=== PATIENT | male | born 1950 | race Caucasian/White ===

== ENCOUNTER 2016-07-30 07:59 | Emergency (ER) | payer BC, OTHER ==
[2016-07-30 08:08] VITALS: BP 152/92
--- NOTE | 2016-07-30 08:23 | EDM.PDOC ---
ED HPI GENERAL MEDICAL PROBLEM - General Chief Complaint: Back Pain or Injury Stated Complaint: [id number] HURT BACK AT WORK Time Seen by Provider: 07/30/16 08:18 Source of Information: Reports: Patient, RN Notes Reviewed History Limitations: Reports: No Limitations - History of Present Illness INITIAL COMMENTS - FREE TEXT/NARRATIVE: Patient is 66 year old male who works at [employer] who was putting together a cardboard pallet when he bent over and had right sided flank pain. He states it was sharp and non radiating and lasted a few mins. He states he became nauseated and went to tell his Boss- After sitting for a few mins he felt better and then got up and walked about 100ft when the pain returned and he became nauseated again. At that time his boss sent him to the ER. He states that he is in no real pain at this time. rates it a 2/10- States it is worse when he bend forward and better at rest. denies any urinary symptoms or history of kidney stones. Onset: Today, Sudden Severity: Mild Right Lower Back Pain Score (Numeric/FACES): 4 - Related Data Allergies Allergy/AdvReac Type Severity Reaction Status Date / Time niacin Allergy Cannot Verified 07/30/16 08:04 [From Niaspan Remember Extended-Release] Home Meds: Home Meds Fenofibrate [Fenoglide] 40 mg PO DAILY 12/10/13 [History] Levothyroxine Sodium [Tirosint] 100 mcg PO DAILY 12/10/13 [History] Metoprolol Tartrate [Lopressor] 50 mg PO BID 12/10/13 [History] atorvaSTATin [Lipitor] 40 mg PO DAILY 12/10/13 [History] Aspirin [Halfprin] 81 mg PO DAILY 03/16/15 [History] Multivitamin [One Daily] 1 tab PO DAILY 03/16/15 [History] Past Medical History HEENT History: Reports: Impaired Vision Other HEENT History: wears reading glasses Cardiovascular History: Reports: High Cholesterol, Hypertension Other Cardiovascular History: [place] - 1991, bypass 2002, pacemaker 2010 Respiratory History: Reports: None Gastrointestinal History: Reports: None Genitourinary History: Reports: Renal Calculus Musculoskeletal History: Reports: None Neurological History: Reports: None Psychiatric History: Reports: None Endocrine/Metabolic History: Reports: Hypothyroidism Hematologic History: Reports: None Immunologic History: Reports: None Oncologic (Cancer) History: Reports: None Dermatologic History: Reports: None - Infectious Disease History Infectious Disease History: Reports: Chicken Pox, Measles Social & Family History - Family History Family Medical History: Noncontributory - Tobacco Use Smoking Status *Q: Never Smoker Second Hand Smoke Exposure: No - Caffeine Use Caffeine Use: Reports: Coffee, Tea - Recreational Drug Use Recreational Drug Use: No - Living Situation & Occupation Living situation: Reports: , with Family Occupation: Employed ED ROS GENERAL - Review of Systems Review Of Systems: ROS reveals no pertinent complaints other than HPI. ED EXAM,LOWER BACK PAIN/INJURY - Physical Exam Exam: See Below Exam Limited By: No Limitations General Appearance: Alert, WD/WN, No Apparent Distress Eye Exam: Bilateral Eye: PERRL Head: Atraumatic, Normocephalic Neck: Normal Inspection, Supple, Non-Tender, Full Range of Motion Respiratory/Chest: No Respiratory Distress, Lungs Clear, Normal Breath Sounds, No Accessory Muscle Use, Chest Non-Tender Cardiovascular: Normal Peripheral Pulses, Regular Rate, Rhythm, No Edema, No Gallop, No JVD, No Murmur, No Rub GI/Abdominal: Normal Bowel Sounds, Soft, Non-Tender, No Organomegaly, No Distention, No Abnormal Bruit, No Mass (Male) Exam: Normal Inspection. No: Testicular Tenderness (R) Back Exam: Paraspinal Tenderness (right sided upper lumbar and thorasic paraspinal tenderness / right CVA tenderness) Extremities: Normal Inspection, Normal Capillary Refill Neurological: Alert, Normal Mood/Affect, Normal Dorsiflexion, CN II-XII Intact, Normal Plantar Flexion, Normal Gait, Normal Reflexes, No Motor/Sensory Deficits , Oriented x 3. No: Abnormal Gait, Straight Leg Raise (L), Straight Leg Raise ( R) DTR - Lower Extremities: 3+: Knee (R), Knee (L), Ankle (R), Ankle (L) Psychiatric: Normal Affect, Normal Mood Skin Exam: Warm, Dry, Intact, Normal Color, No Rash Course - Vital Signs Last Recorded V/S: Last Vital Signs Temp 97.6 F 07/30/16 08:05 Pulse 85 07/30/16 08:05 Resp 16 07/30/16 08:05 BP 152/92 H 07/30/16 08:05 Pulse Ox 96 07/30/16 08:05 - Orders/Labs/Meds Labs: Laboratory Tests 07/30/16 Range/Units 08:17 Urine Color Yellow (YELLOW) Urine Appearance Clear (CLEAR) Urine pH 5.5 (5.0-9.0) Ur Specific [place] 1.020 (1.005-1.030) Urine Protein Negative (NEGATIVE) Urine Glucose (UA) Negative (NEGATIVE) Urine Ketones Negative (NEGATIVE) Urine Occult Blood Moderate H (NEGATIVE) Urine Nitrite Negative (NEGATIVE) Urine Bilirubin Negative (NEGATIVE) Urine Urobilinogen 0.2 (0.2-1.0) mg/dL Ur Leukocyte Esterase Negative (NEGATIVE) Urine RBC 10-20 H /HPF Urine WBC 0-5 (0-5/HPF) /HPF Ur Epithelial Cells Occasional /HPF Calcium Oxalate Crystal Few H /HPF Urine Bacteria Few (0-FEW/HPF) /HPF Urine Mucus Moderate H /LPF - Re-Assessments/Exams Free Text/Narrative Re-Assessment/Exam: 07/30/16 08:55 Patient was found to have 10-20 RBC and mod blood in urine- I feel this is related to kidney stone- which the patient now states he did have one about 3 days ago. I offered CT for further exam - but patient refused and wished to be treated as such and will return for increase pain - or follow up with PCP if pain persistant for more than one week. patient and at bedside verbalized and agree with d/c info. Departure - Departure Time of Disposition: 08:57 Disposition: Home, Self-Care 01 Condition: good Clinical Impression: Acute right flank pain, Hematuria - Discharge Information Instructions: Pain Medicine Instructions, [id number], Flank Pain, Hematuria, Adult Forms: ED Department Discharge Additional Instructions: Patient given flomax/ ultram/ zofran told to not drink or mix alcohol with ultram. Follow up with PCP if pain persistent for greater than one week.
[2016-07-30] MEDS ORDERED: traMADol 50 MG Tab ONE (09:09)
[2016-07-30] MEDS ORDERED: Ondansetron 4 MG Tab.DIS PO ONE (09:11)
[2016-07-30] MEDS ORDERED: traMADol 50 MG Tab PO ONE (09:11)
[2016-07-30] MEDS ORDERED: Tamsulosin 0.4 MG Cap.ER PO ONE (09:11)
[2016-07-30] MEDS ORDERED: Ondansetron 4 MG Tab.DIS ONE (09:11)
[2016-07-30] MEDS ORDERED: Tamsulosin 0.4 MG Cap.ER ONE (09:11)
== END 2016-07-30 09:19 | disposition home or self-care (01) ==
LOC: DL.ED 07:59
DX: R10.9 Unspecified abdominal pain (principal); R31.9 Hematuria, unspecified; E78.00 Pure hypercholesterolemia, unspecified; I10 Essential (primary) hypertension; I25.2 Old myocardial infarction; E03.9 Hypothyroidism, unspecified; Z79.899 Other long term (current) drug therapy; Z88.8 Allergy status to other drugs, medicaments and biological substances; Z79.82 Long term (current) use of aspirin
CPT/HCPCS: 81001; 99283; A9270-GY

== ENCOUNTER 2016-10-25 18:43 | Emergency (ER) | payer BC, OTHER ==
[2016-10-25] MEDS ORDERED: Ondansetron 4 MG/2 ML SDV IV ONE (18:57)
[2016-10-25] MEDS ORDERED: Sodium Chloride 0.9% 1,000 ML IV ONE (18:57)
[2016-10-25] MEDS ORDERED: Morphine 2 MG/ML Syringe IVPUSH ONE (18:57)
--- NOTE | 2016-10-25 19:02 | EDM.PDOC ---
ED HPI GENERAL MEDICAL PROBLEM - General Chief Complaint: Genitourinary Problem Stated Complaint: SEVERE ABD PAINS, KIDNEY STONES, [id number] Time Seen by Provider: 10/25/16 18:59 Source of Information: Reports: Patient, Family History Limitations: Reports: No Limitations - History of Present Illness INITIAL COMMENTS - FREE TEXT/NARRATIVE: spouse states pt started blood in urine Saturday had no pain till today, pt thinks it's K-stone. been nauseous taking zofran with '0'. Right Flank Pain Score (Numeric/FACES): 7 - Related Data Allergies Allergy/AdvReac Type Severity Reaction Status Date / Time niacin Allergy Cannot Verified 10/25/16 18:55 [From Niaspan Remember Extended-Release] Home Meds: Home Meds Fenofibrate [Fenoglide] 40 mg PO DAILY 12/10/13 [History] Levothyroxine Sodium [Tirosint] 100 mcg PO DAILY 12/10/13 [History] Metoprolol Tartrate [Lopressor] 50 mg PO BID 12/10/13 [History] atorvaSTATin [Lipitor] 40 mg PO DAILY 12/10/13 [History] Aspirin [Halfprin] 81 mg PO DAILY 03/16/15 [History] Multivitamin [One Daily] 1 tab PO DAILY 03/16/15 [History] Past Medical History HEENT History: Reports: Impaired Vision Other HEENT History: wears reading glasses Cardiovascular History: Reports: High Cholesterol, Hypertension Other Cardiovascular History: [place] - 1991, bypass 2002, pacemaker 2010 Respiratory History: Reports: None Gastrointestinal History: Reports: None Genitourinary History: Reports: Renal Calculus Musculoskeletal History: Reports: None Neurological History: Reports: None Psychiatric History: Reports: None Endocrine/Metabolic History: Reports: Hypothyroidism Hematologic History: Reports: None Immunologic History: Reports: None Oncologic (Cancer) History: Reports: None Dermatologic History: Reports: None - Infectious Disease History Infectious Disease History: Reports: Chicken Pox, Measles Social & Family History - Family History Family Medical History: Noncontributory - Tobacco Use Smoking Status *Q: Never Smoker Second Hand Smoke Exposure: No - Caffeine Use Caffeine Use: Reports: Coffee, Tea - Recreational Drug Use Recreational Drug Use: No - Living Situation & Occupation Living situation: Reports: , with Family Occupation: Employed ED ROS GENERAL - Review of Systems Review Of Systems: ROS reveals no pertinent complaints other than HPI. ED EXAM, RENAL/ - Physical Exam Exam: See Below Exam Limited By: No Limitations General Appearance: Alert, WD/WN, Mild Distress, Other (right flank pain) Ears: Hearing Grossly Normal Throat/Mouth: Normal Voice, No Airway Compromise Head: Atraumatic Neck: Non-Tender, Full Range of Motion Respiratory/Chest: No Respiratory Distress Cardiovascular: Regular Rate, Rhythm GI/Abdominal: Tender, Other (right side) Back Exam: CVA Tenderness (R) Neurological: Alert, Oriented, Normal Cognition, Normal Gait, No Motor/Sensory Deficits Psychiatric: Flat Affect, Tearful Skin Exam: Warm, Dry, Normal Color Lymphatic: No Adenopathy Course - Vital Signs Last Recorded V/S: Last Vital Signs Temp 35.9 C 10/25/16 18:51 Pulse 60 10/25/16 18:51 Resp 16 10/25/16 18:51 BP 124/98 H 10/25/16 18:51 Pulse Ox 100 10/25/16 18:51 - Orders/Labs/Meds Orders: Active Orders 24 hr Category Date Time Status UA W/MICROSCOPIC [URIN] Stat Lab 10/25/16 20:50 Ordered cefTRIAXone [Rocephin] 1 gm Med 10/25/16 20:55 Ordered Sodium Chloride 0.9% [Normal Saline] 50 ml IV ONETIME Medication Orders Ceftriaxone Sodium 1 gm/ (Sodium Chloride) 50 mls @ 100 mls/hr IV ONETIME ONE Stop: 10/25/16 21:24 Labs: Laboratory Tests 10/25/16 10/25/16 Range/Units 19:00 19:00 WBC 13.5 H (5.0-10.0) 10^3/uL RBC 4.54 L (4.6-6.2) 10^6/uL Hgb 13.8 L (14.0-18.0) g/dL Hct 39.3 L (40.0-54.0) % MCV 86.6 (80-100) fL MCH 30.4 (27.0-34.0) pg MCHC 35.1 H (33.0-35.0) g/dL Plt Count 214 (150-450) 10^3/uL Neut % (Auto) 81.8 H (42.2-75.2) % Lymph % (Auto) 12.5 L (20.5-50.1) % [place] % (Auto) 4.2 (2-8) % Eos % (Auto) 1.3 (1.0-3.0) % Baso % (Auto) 0.2 (0.0-1.0) % Sodium 142 (135-145) mmol/L Potassium 3.8 (3.6-5.0) mmol/L Chloride 107 (101-111) mmol/L Carbon Dioxide 25.0 (21.0-31.0) mmol/L Anion Gap 13.8 BUN 23 H (7-18) mg/dL Creatinine 1.7 H (0.6-1.3) mg/dL Est Cr Clr Drug Dosing 45.33 mL/min Estimated GFR (MDRD) 41 BUN/Creatinine Ratio 13.52 Glucose 129 H (74-105) mg/dL Calcium 10.2 (8.4-10.2) mg/dl Total Bilirubin 0.9 (0.2-1.0) mg/dL AST 27 (10-42) IU/L ALT 24 (10-60) IU/L Alkaline Phosphatase 55 (42-121) IU/L Total Protein 6.7 (6.7-8.2) g/dl Albumin 4.0 (3.2-5.5) g/dl Globulin 2.7 Albumin/Globulin Ratio 1.48 Meds: Medications Generic Name Dose Route Start Last Admin Trade Name Freq PRN Reason Stop Dose Admin Ceftriaxone Sodium 1 gm/ 50 mls @ 100 mls/hr 10/25/16 20:55 Sodium Chloride IV 10/25/16 21:24 ONETIME ONE Discontinued Medications Generic Name Dose Route Start Last Admin Trade Name Freq PRN Reason Stop Dose Admin Sodium Chloride 1,000 mls @ 500 mls/hr 10/25/16 18:57 10/25/16 19:09 Normal Saline IV 10/25/16 20:56 500 mls/hr .BOLUS ONE Administration Morphine Sulfate 2 mg 10/25/16 18:57 10/25/16 19:12 Morphine IVPUSH 10/25/16 18:58 2 mg ONETIME ONE Administration Ondansetron HCl 4 mg 10/25/16 18:57 10/25/16 19:10 Zofran IV 10/25/16 18:58 4 mg ONETIME ONE Administration Departure - Departure Time of Disposition: 20:56 Disposition: DC/Tfer to Acute Hospital 02 Condition: Good Clinical Impression: Kidney stone, Pyelonephritis - Discharge Information Forms: Interfacility Transfer EMTALA - My Orders Last 24 Hours: My Active Orders 10/25/16 20:50 UA W/MICROSCOPIC [URIN] Stat 10/25/16 20:55 cefTRIAXone [Rocephin] 1 gm Sodium Chloride 0.9% [Normal Saline] 50 ml IV ONETIME - Assessment/Plan Last 24 Hours: My Active Orders 10/25/16 20:50 UA W/MICROSCOPIC [URIN] Stat 10/25/16 20:55 cefTRIAXone [Rocephin] 1 gm Sodium Chloride 0.9% [Normal Saline] 50 ml IV ONETIME
[2016-10-25] MEDS ORDERED: cefTRIAXone 1 GM in Sodium Chloride 0.9% 50 ML IV ONE (20:55)
[2016-10-25 21:07] VITALS: BP 142/83
== END 2016-10-25 21:24 ==
LOC: DL.ED 18:43
DX: N13.2 Hydronephrosis with renal and ureteral calculous obstruction (principal); N12 Tubulo-interstitial nephritis, not specified as acute or chronic; E03.9 Hypothyroidism, unspecified; E78.00 Pure hypercholesterolemia, unspecified; I10 Essential (primary) hypertension; I25.2 Old myocardial infarction; Z79.82 Long term (current) use of aspirin; Z88.8 Allergy status to other drugs, medicaments and biological substances; Z79.899 Other long term (current) drug therapy; Z87.440 Personal history of urinary (tract) infections
CPT/HCPCS: 36415; 74176; 80053; 81001; 85025; 96365; 96366; 96375; 99285; J0696; J2270; J2405; J7030; J7050

== ENCOUNTER 2016-10-29 02:27 | Observation (INO) | payer BC ==
[2016-10-29] MEDS ORDERED: Sodium Chloride 0.9% 1,000 ML IV ONE (02:40)
[2016-10-29] MEDS ORDERED: Morphine 2 MG/ML Syringe IVPUSH ONE (02:40)
[2016-10-29] MEDS ORDERED: Ondansetron 4 MG/2 ML SDV IV ONE (02:40)
--- NOTE | 2016-10-29 02:44 | EDM.PDOC ---
ED HPI GENERAL MEDICAL PROBLEM - General Chief Complaint: Genitourinary Problem Stated Complaint: KIDNEY STONE, HAS A STENT AND IS BLEEDING Time Seen by Provider: 10/29/16 02:42 Source of Information: Reports: Patient History Limitations: Reports: No Limitations - History of Present Illness INITIAL COMMENTS - FREE TEXT/NARRATIVE: had K-stone sent to [facility] for stent saturday came home yesterday then blood in urine this am with right flank pain & occasional dysuria. Right Flank Pain Score (Numeric/FACES): 6 - Related Data Allergies Allergy/AdvReac Type Severity Reaction Status Date / Time niacin Allergy Cannot Verified 10/29/16 02:31 [From Niaspan Remember Extended-Release] Home Meds: Home Meds Fenofibrate [Fenoglide] 40 mg PO DAILY 12/10/13 [History] Levothyroxine Sodium [Tirosint] 100 mcg PO DAILY 12/10/13 [History] Metoprolol Tartrate [Lopressor] 50 mg PO BID 12/10/13 [History] atorvaSTATin [Lipitor] 40 mg PO DAILY 12/10/13 [History] Aspirin [Halfprin] 81 mg PO DAILY 03/16/15 [History] Multivitamin [One Daily] 1 tab PO DAILY 03/16/15 [History] Past Medical History HEENT History: Reports: Impaired Vision Other HEENT History: wears reading glasses Cardiovascular History: Reports: High Cholesterol, Hypertension Other Cardiovascular History: [place] - 1991, bypass 2002, pacemaker 2010 Respiratory History: Reports: None Gastrointestinal History: Reports: None Genitourinary History: Reports: Renal Calculus Musculoskeletal History: Reports: None Neurological History: Reports: None Psychiatric History: Reports: None Endocrine/Metabolic History: Reports: Hypothyroidism Hematologic History: Reports: None Immunologic History: Reports: None Oncologic (Cancer) History: Reports: None Dermatologic History: Reports: None - Infectious Disease History Infectious Disease History: Reports: Chicken Pox, Measles - Past Surgical History Male Surgical History: Reports: Ureteral Stent Social & Family History - Family History Family Medical History: Noncontributory - Tobacco Use Smoking Status *Q: Never Smoker Second Hand Smoke Exposure: No - Caffeine Use Caffeine Use: Reports: Coffee, Tea - Recreational Drug Use Recreational Drug Use: No - Living Situation & Occupation Living situation: Reports: , with Family Occupation: Employed ED ROS GENERAL - Review of Systems Review Of Systems: ROS reveals no pertinent complaints other than HPI. ED EXAM, RENAL/ - Physical Exam Exam: See Below Exam Limited By: No Limitations General Appearance: Alert, WD/WN, Mild Distress, Other (pain) Ears: Hearing Grossly Normal Throat/Mouth: Normal Voice, No Airway Compromise Head: Atraumatic Neck: Non-Tender, Full Range of Motion Respiratory/Chest: No Respiratory Distress Cardiovascular: Regular Rate, Rhythm GI/Abdominal: Soft, Non-Tender Neurological: Alert, Oriented, Normal Cognition, Normal Gait, No Motor/Sensory Deficits Psychiatric: Flat Affect Skin Exam: Warm, Dry, Normal Color Lymphatic: No Adenopathy Course - Vital Signs Last Recorded V/S: Last Vital Signs Temp 36.4 C 10/29/16 02:35 Pulse 68 10/29/16 02:35 Resp 16 10/29/16 02:35 BP 139/90 10/29/16 02:35 Pulse Ox 98 10/29/16 02:35 - Orders/Labs/Meds Orders: Active Orders 24 hr Category Date Time Status Sodium Chloride 0.9% [Normal Saline] 1,000 ml Med 10/29/16 02:40 Active IV .BOLUS Medication Orders Sodium Chloride (Normal Saline) 1,000 mls @ 500 mls/hr IV .BOLUS ONE Stop: 10/29/16 04:39 Last Admin: 10/29/16 02:52 Dose: 500 mls/hr Labs: Laboratory Tests 10/29/16 10/29/16 10/29/16 Range/Units 02:40 02:47 02:47 WBC 9.5 (5.0-10.0) 10^3/uL RBC 4.74 (4.6-6.2) 10^6/uL Hgb 14.2 (14.0-18.0) g/dL Hct 41.1 (40.0-54.0) % MCV 86.7 (80-100) fL MCH 30.0 (27.0-34.0) pg MCHC 34.5 (33.0-35.0) g/dL Plt Count 207 (150-450) 10^3/uL Neut % (Auto) 63.4 (42.2-75.2) % Lymph % (Auto) 24.7 (20.5-50.1) % [place] % (Auto) 7.7 (2-8) % Eos % (Auto) 3.8 H (1.0-3.0) % Baso % (Auto) 0.4 (0.0-1.0) % Sodium 140 (135-145) mmol/L Potassium 3.5 L (3.6-5.0) mmol/L Chloride 105 (101-111) mmol/L Carbon Dioxide 26.0 (21.0-31.0) mmol/L Anion Gap 12.5 BUN 21 H (7-18) mg/dL Creatinine 1.2 (0.6-1.3) mg/dL Est Cr Clr Drug Dosing TNP Estimated GFR (MDRD) > 60 BUN/Creatinine Ratio 17.50 Glucose 135 H (74-105) mg/dL Calcium 10.3 H (8.4-10.2) mg/dl Total Bilirubin 0.4 (0.2-1.0) mg/dL AST 23 (10-42) IU/L ALT 23 (10-60) IU/L Alkaline Phosphatase 56 (42-121) IU/L Total Protein 6.6 L (6.7-8.2) g/dl Albumin 3.6 (3.2-5.5) g/dl Globulin 3.0 Albumin/Globulin Ratio 1.20 Urine Color Red (YELLOW) Urine Appearance Turbid (CLEAR) Urine pH 7.0 (5.0-9.0) Ur Specific [place] 1.020 (1.005-1.030) Urine Protein >=300 H (NEGATIVE) Urine Glucose (UA) Negative (NEGATIVE) Urine Ketones Negative (NEGATIVE) Urine Occult Blood Large H (NEGATIVE) Urine Nitrite Negative (NEGATIVE) Urine Bilirubin Small H (NEGATIVE) Urine Urobilinogen 0.2 (0.2-1.0) mg/dL Ur Leukocyte Esterase Large H (NEGATIVE) Urine RBC >100 H /HPF Urine WBC 40-50 H (0-5/HPF) /HPF Ur Epithelial Cells Rare /HPF Calcium Oxalate Crystal Few H /HPF Amorphous Sediment Few (0/HPF) /HPF Urine Bacteria Rare (0-FEW/HPF) /HPF Urine Mucus Rare /LPF Meds: Medications Generic Name Dose Route Start Last Admin Trade Name Freq PRN Reason Stop Dose Admin Sodium Chloride 1,000 mls @ 500 mls/hr 10/29/16 02:40 10/29/16 02:52 Normal Saline IV 10/29/16 04:39 500 mls/hr .BOLUS ONE Administration Discontinued Medications Generic Name Dose Route Start Last Admin Trade Name Geoff PRN Reason Stop Dose Admin Morphine Sulfate 2 mg 10/29/16 02:40 10/29/16 02:55 Morphine IVPUSH 10/29/16 02:41 2 mg ONETIME ONE Administration Ondansetron HCl 4 mg 10/29/16 02:40 10/29/16 02:53 Zofran IV 10/29/16 02:41 4 mg ONETIME ONE Administration - Re-Assessments/Exams Free Text/Narrative Re-Assessment/Exam: 10/29/16 03:[address] Huddleston who kindly admitted pt to observation Departure - Departure Time of Disposition: 03:48 Disposition: Refer to Observation Condition: Good Clinical Impression: Acute right flank pain Hematuria Qualifiers: Hematuria type: gross Qualified Code(s): R31.0 - Gross hematuria - Discharge Information Forms: ED Department Discharge - My Orders Last 24 Hours: My Active Orders 10/29/16 02:40 Sodium Chloride 0.9% [Normal Saline] 1,000 ml IV .BOLUS - Assessment/Plan Last 24 Hours: My Active Orders 10/29/16 02:40 Sodium Chloride 0.9% [Normal Saline] 1,000 ml IV .BOLUS
[2016-10-29 03:11] LABS: CHLORIDE,CL 105 mmol/L (101-111); SODIUM,NA 140 mmol/L (135-145)
[2016-10-29] MEDS ORDERED: Acetaminophen 325 MG Tab PO PRN (05:22)
[2016-10-29] MEDS ORDERED: Ondansetron 4 MG Tab.DIS PO PRN (05:22)
[2016-10-29] MEDS ORDERED: Zolpidem 5 MG Tab PO PRN (05:22)
[2016-10-29] MEDS: Levothyroxine 100 MCG Tab PO SCH (06:14)
[2016-10-29] MEDS: Ciprofloxacin in D5W 400 MG in Premix Bag 1 BAG IV SCH ×6 (06:14→20:38)
[2016-10-29] MEDS: Aspirin 81 MG Tab.EC PO SCH (09:04)
[2016-10-29] MEDS: atorvaSTATin 20 MG Tab PO SCH (09:04)
[2016-10-29] MEDS: Multivitamins,Therapeutic Tab PO SCH (09:05)
[2016-10-29] MEDS: Metoprolol Tartrate 50 MG Tab PO SCH ×2 (09:05→20:39)
[2016-10-29] MEDS: FENOFIBRATE 40 MG PO SCH (09:11)
--- NOTE | 2016-10-29 10:14 | PCM.HP ---
H&P History of Present Illness - General Date of Service: 10/29/16 Admit Problem/Dx: Admission Diagnosis/Problem Admission Diagnosis/Problem Hematuria - History of Present Illness Initial Comments - Free Text/Narative: The patient is a 66-year-old gentleman with a history of coronary artery disease. The patient was recently diagnosed with a kidney stone and urinary tract infection. The patient was transferred to [facility] and underwent ureteral stent placement. Subsequently the patient had hematuria but resolved in a few days. When patient was discharged she had yellow clear urine. On Saturday night the patient developed hematuria. The hematuria was moderate, associated with right flank pain. In the emergency room the patient received IV morphine that resolved the pain. Right Flank Pain Score (Numeric/FACES): 6 - Related Data Allergies/Adverse Reactions: Allergies Allergy/AdvReac Type Severity Reaction Status Date / Time niacin Allergy Cannot Verified 10/29/16 02:31 [From [facility] Remember Extended-Release] Home Medications: Home Meds Fenofibrate [Fenoglide] 40 mg PO DAILY 12/10/13 [History] Levothyroxine Sodium [Tirosint] 100 mcg PO DAILY 12/10/13 [History] Metoprolol Tartrate [Lopressor] 50 mg PO BID 12/10/13 [History] atorvaSTATin [Lipitor] 40 mg PO DAILY 12/10/13 [History] Aspirin [Halfprin] 81 mg PO DAILY 03/16/15 [History] Multivitamin [One Daily] 1 tab PO DAILY 03/16/15 [History] Past Medical History HEENT History: Reports: Impaired Vision Other HEENT History: wears reading glasses Cardiovascular History: Reports: High Cholesterol, Hypertension Other Cardiovascular History: [place] - 1991, bypass 2002, pacemaker 2010 Respiratory History: Reports: None Gastrointestinal History: Reports: None Genitourinary History: Reports: Renal Calculus Musculoskeletal History: Reports: None Neurological History: Reports: None Psychiatric History: Reports: None Endocrine/Metabolic History: Reports: Hypothyroidism Hematologic History: Reports: None Immunologic History: Reports: None Oncologic (Cancer) History: Reports: None Dermatologic History: Reports: None - Infectious Disease History Infectious Disease History: Reports: Chicken Pox, Measles - Past Surgical History Cardiovascular Surgical History: Reports: Coronary Artery Bypass, Pacer Male Surgical History: Reports: Ureteral Stent Social & Family History - Family History Family Medical History: Noncontributory - Tobacco Use Smoking Status *Q: Former Smoker Years of Tobacco use: 22 Packs/Tins Daily: 1 Used Tobacco, but Quit: Yes Month Tobacco Last Used: 03/1991 Second Hand Smoke Exposure: No - Caffeine Use Caffeine Use: Reports: Coffee - Recreational Drug Use Recreational Drug Use: No - Living Situation & Occupation Living situation: Reports: , with Family Occupation: Employed H&P Review of Systems - Review of Systems: Review Of Systems: See Below General: Denies: Fever Pulmonary: Denies: Shortness of Breath Cardiovascular: Denies: Chest Pain Gastrointestinal: Denies: Abdominal Pain Genitourinary: Reports: Hematuria, Flank Pain (Right side) Skin: Reports: No Symptoms Psychiatric: Reports: No Symptoms Neurological: Reports: No Symptoms Exam - Exam Exam: See Below - Vital Signs Vital Signs: Last Vital Signs Temp 36.7 C 10/29/16 07:00 Pulse 60 10/29/16 09:05 Resp 16 10/29/16 07:00 BP 127/84 10/29/16 09:05 Pulse Ox 97 10/29/16 07:00 Weight: 96.162 kg - Exam General: Alert, Oriented Neck: Supple Lungs: Clear to Auscultation, Normal Respiratory Effort Cardiovascular: Regular Rate, Regular Rhythm (Male) Exam: Other (Hematuria) Extremities: No Pedal Edema - Patient Data Lab Results Last 24 hrs: Laboratory Results - last 24 hr 10/29/16 Range/Units 06:11 WBC 9.3 (5.0-10.0) 10^3/uL RBC 4.16 L (4.6-6.2) 10^6/uL Hgb 12.5 L (14.0-18.0) g/dL Hct 36.3 L (40.0-54.0) % MCV 87.3 (80-100) fL MCH 30.0 (27.0-34.0) pg MCHC 34.4 (33.0-35.0) g/dL Plt Count 177 (150-450) 10^3/uL Neut % (Auto) 65.8 (42.2-75.2) % Lymph % (Auto) 20.8 (20.5-50.1) % [place] % (Auto) 9.1 H (2-8) % Eos % (Auto) 4.0 H (1.0-3.0) % Baso % (Auto) 0.3 (0.0-1.0) % Result Diagrams: 10/29/16 06:11 10/29/16 02:47 *Q Meaningful Use (ADM) - VTE *Q VTE Criteria *Q: - Stroke *Q Stroke Criteria *Q: - AMI *Q AMI Criteria *Q: - Problem List (1) Coronary artery disease SNOMED Code(s): 07603134 ICD Code: I25.10 - ATHSCL HEART DISEASE OF [place] CORONARY ARTERY W/O ANG PCTRS Status: Acute Current Visit: Yes (2) Acute right flank pain SNOMED Code(s): 413650533 ICD Code: R10.9 - UNSPECIFIED ABDOMINAL PAIN Status: Acute Current Visit : Yes (3) Hematuria SNOMED Code(s): 89784050 ICD Code: R31.9 - HEMATURIA, UNSPECIFIED Status: Acute Current Visit: Yes Qualifiers: Hematuria type: gross Qualified Code(s): R31.0 - Gross hematuria Problem List Initiated/Reviewed/Updated: Yes Orders Last 24hrs: Active Orders 24 hr Category Date Time Status BASIC METABOLIC PANEL,BMP [CHEM] AM Lab 10/30/16 05:15 Ordered CBC WITH AUTO DIFF [HEME] AM Lab 10/30/16 05:15 Ordered CULTURE URINE [RM] Routine Lab 10/29/16 10:06 Uncollected Ciprofloxacin in D5W [Cipro in D5W 400 MG/200 ML] 400 Med 10/29/16 05:45 Active mg Premix Bag 1 bag IV Q12HR Medication Orders Acetaminophen (Tylenol) 650 mg PO Q4H PRN PRN Reason: Pain (Mild 1-3)/fever Aspirin (Halfprin) 81 mg PO DAILY [facility] Last Admin: 10/29/16 09:04 Dose: 81 mg Atorvastatin Calcium (Lipitor) 40 mg PO DAILY [facility] Last Admin: 10/29/16 09:04 Dose: 40 mg Ciprofloxacin/Dextrose 400 mg/ (Premix) 200 mls @ 200 mls/hr IV Q12HR [facility] Last Admin: 10/29/16 09:10 Dose: Admin: 10/29/16 06:14 Dose: 200 mls/hr Levothyroxine Sodium (Synthroid) 100 mcg PO ACBREAKFAST [facility] Last Admin: 10/29/16 06:14 Dose: 100 mcg Metoprolol Tartrate (Lopressor) 50 mg PO BID [facility] Last Admin: 10/29/16 09:05 Dose: 50 mg Multivitamins (Thera) 1 each PO DAILY [facility] Last Admin: 10/29/16 09:05 Dose: 1 each Non-Formulary Medication (Fenofibrate [Fenoglide]) 40 mg PO DAILY [facility] Last Admin: 10/29/16 09:11 Dose: Ondansetron HCl (Zofran Odt) 4 mg PO Q4H PRN PRN Reason: nausea, able to take PO Oxycodone HCl (Oxycodone) 5 mg PO Q4H PRN PRN Reason: Pain (moderate 4-6) Sodium Chloride (Saline Flush) 10 ml FLUSH ASDIRECTED PRN PRN Reason: Keep Vein Open Zolpidem Tartrate (Ambien) 5 mg PO BEDTIME PRN PRN Reason: Sleep Assessment/Plan Comment:: The patient presented with recent history of kidney stone treated with ureteral stenting. He developed recurrence of hematuria. #1 hematuria Likely due to a combination of stone, ureteral stent, infection Will keep the patient hydrated, monitor hematuria If significant amount of blood clots or obstruction noted we'll place irrigation catheter #2 urinary tract infection With history of stone Will check urine culture Treat with IV ciprofloxacin #3 coronary artery disease Continue home medications including aspirin and beta padmini #4 DVT prophylaxis will be with the RAUDEL stockings and mobilization Hold heparin or Lovenox given to hematuria
[2016-10-29] MEDS: Sodium Chloride 0.9% 10 ML Syringe FLUSH PRN (20:39)
[2016-10-30] MEDS: oxyCODONE 5 MG Tab PO PRN ×2 (01:54→09:38)
[2016-10-30] MEDS: Levothyroxine 100 MCG Tab PO SCH (06:02)
[2016-10-30] MEDS: Multivitamins,Therapeutic Tab PO SCH (09:03)
[2016-10-30] MEDS: Aspirin 81 MG Tab.EC PO SCH (09:03)
[2016-10-30] MEDS: Metoprolol Tartrate 50 MG Tab PO SCH (09:03)
[2016-10-30] MEDS: Ciprofloxacin in D5W 400 MG in Premix Bag 1 BAG IV SCH ×2 (09:05)
[2016-10-30] MEDS: Sodium Chloride 0.9% 10 ML Syringe FLUSH PRN (09:06)
[2016-10-30] MEDS: atorvaSTATin 20 MG Tab PO SCH (10:18)
[2016-10-30] MEDS: FENOFIBRATE 40 MG PO SCH (10:50)
[2016-10-30 11:07] VITALS: BP 111/60
--- NOTE | 2016-10-30 11:51 | PCM.DCSUM1 ---
Discharge Summary - Hospital Course Free Text/Narrative:: The patient is a 66-year-old gentleman who was recently diagnosed with a right nephrolithiasis. The patient had no associated urinary tract infection with that. The patient had a stent placement on 26 October. The patient was discharged and then developed hematuria. Hematuria was associated with right flank pain. #1 hematuria Likely due to a combination of stone, ureteral stent, possible infection During the hospital stay it appears that the hematuria still present but clearing. There was no sign of obstruction or significant blood clots. The patient's right flank pain was controlled with oxycodone. #2 possible urinary tract infection With history of stone Given the low-grade temperature, pain, recent urinary manipulation and hematuria there was concern for urinary tract infection. Urine culture remained negative for now treat empirically with ciprofloxacin for a few days #3 coronary artery disease Continue home medications including aspirin and beta padmini I elected to continue the aspirin despite the hematuria since this does not appear to be a life-threatening bleeding. I have called Dr. Mendoza's office. The patient is already scheduled for ureteral stent removal about 2 weeks from now. I have updated the office regarding the pain in the hematuria. They will be in contact with the patient. - Discharge Data Discharge Date: 10/30/16 Discharge Disposition: Home, Self-Care 01 Condition: Good - Discharge Diagnosis/Problem(s) (1) Coronary artery disease SNOMED Code(s): 66092901 ICD Code: I25.10 - ATHSCL HEART DISEASE OF [place] CORONARY ARTERY W/O ANG PCTRS Status: Acute Current Visit: Yes (2) Acute right flank pain SNOMED Code(s): 113205857 ICD Code: R10.9 - UNSPECIFIED ABDOMINAL PAIN Status: Acute Current Visit : Yes (3) Hematuria SNOMED Code(s): 98253333 ICD Code: R31.9 - HEMATURIA, UNSPECIFIED Status: Acute Current Visit: Yes Qualifiers: Hematuria type: gross Qualified Code(s): R31.0 - Gross hematuria - Patient Instructions Diet: Heart Healthy Diet Activity: As Tolerated - Discharge Plan Prescriptions/Med Rec: Ciprofloxacin [IJP: Ciprofloxacin HCl] 250 mg PO .TWICE DAILY #8 tab Ferrous Gluconate [Iron] 236 mg PO DAILY #10 tablet oxyCODONE 5 mg PO Q4H PRN #22 tablet PRN Reason: Pain Home Medications: Home Meds Levothyroxine Sodium [Tirosint] 100 mcg PO DAILY 12/10/13 [History] Metoprolol Tartrate [Lopressor] 50 mg PO BID 12/10/13 [History] atorvaSTATin [Lipitor] 40 mg PO DAILY 12/10/13 [History] Aspirin [Halfprin] 81 mg PO DAILY 03/16/15 [History] Multivitamin [One Daily] 1 tab PO DAILY 03/16/15 [History] Fenofibrate Nanocrystallized [Fenofibrate] 145 mg PO DAILY 10/29/16 [History] Ciprofloxacin [IJP: Ciprofloxacin HCl] 250 mg PO .TWICE DAILY #8 tab 10/30/16 [ Rx] Ferrous Gluconate [Iron] 236 mg PO DAILY #10 tablet 10/30/16 [Rx] oxyCODONE 5 mg PO Q4H PRN #22 tablet 10/30/16 [Rx] Referrals: Ottoniel Sesay MD [Primary Care Provider] - (in 2-3 days re: hematuria, anemia) - Discharge Summary/Plan Comment DC Time >30 min.: Yes (Contacting Dr. Mendoza's office) - Review of Systems General: Denies: Fever, Weakness Pulmonary: Denies: Shortness of Breath Cardiovascular: Denies: Chest Pain Genitourinary: Reports: Flank Pain (Right-sided) Neurological: Denies: Confusion Psychiatric: Denies: Confusion - Patient Data Vitals - Most Recent: Last Vital Signs Temp 37.2 C 10/30/16 11:00 Pulse 64 10/30/16 11:00 Resp 20 10/30/16 11:00 BP 111/60 10/30/16 11:00 Pulse Ox 97 10/30/16 11:00 Weight - Most Recent: 96.162 kg I&O - Last 24 hours: Intake & Output 10/29/16 10/30/16 10/30/16 22:59 06:59 14:59 Intake Total 937 300 200 Output Total 1400 310 200 Balance -463 -10 0 Lab Results - Last 24 hrs: Laboratory Results - last 24 hr 10/30/16 10/30/16 Range/Units 06:10 06:10 WBC 9.0 (5.0-10.0) 10^3/uL RBC 4.42 L (4.6-6.2) 10^6/uL Hgb 13.3 L (14.0-18.0) g/dL Hct 38.6 L (40.0-54.0) % MCV 87.3 (80-100) fL MCH 30.1 (27.0-34.0) pg MCHC 34.5 (33.0-35.0) g/dL Plt Count 199 (150-450) 10^3/uL Neut % (Auto) 61.9 (42.2-75.2) % Lymph % (Auto) 24.9 (20.5-50.1) % [place] % (Auto) 8.7 H (2-8) % Eos % (Auto) 4.2 H (1.0-3.0) % Baso % (Auto) 0.3 (0.0-1.0) % Sodium 139 (135-145) mmol/L Potassium 3.9 (3.6-5.0) mmol/L Chloride 104 (101-111) mmol/L Carbon Dioxide 27.0 (21.0-31.0) mmol/L Anion Gap 11.9 BUN 17 (7-18) mg/dL Creatinine 1.3 (0.6-1.3) mg/dL Est Cr Clr Drug Dosing 59.27 mL/min Estimated GFR (MDRD) 56 Glucose 98 (74-105) mg/dL Calcium 9.6 (8.4-10.2) mg/dl YSABEL Results - Last 24 hrs: Microbiology 10/29/16 15:25 Urine Culture - Preliminary Urine, Clean Catch NO GROWTH AFTER 1 DAY Med Orders - Current: Current Medications Acetaminophen (Tylenol) 650 mg PO Q4H PRN PRN Reason: Pain (Mild 1-3)/fever Aspirin (Halfprin) 81 mg PO DAILY [facility] Last Admin: 10/30/16 09:03 Dose: 81 mg Atorvastatin Calcium (Lipitor) 40 mg PO BEDTIME [facility] Ciprofloxacin/Dextrose 400 mg/ (Premix) 200 mls @ 200 mls/hr IV Q12HR [facility] Last Admin: 10/30/16 09:05 Dose: 200 mls/hr Levothyroxine Sodium (Synthroid) 100 mcg PO ACBREAKFAST [facility] Last Admin: 10/30/16 06:02 Dose: 100 mcg Metoprolol Tartrate (Lopressor) 50 mg PO BID [facility] Last Admin: 10/30/16 09:03 Dose: 50 mg Multivitamins (Thera) 1 each PO DAILY [facility] Last Admin: 10/30/16 09:03 Dose: 1 each Non-Formulary Medication (Fenofibrate [Fenoglide]) 40 mg PO DAILY [facility] Last Admin: 10/30/16 10:50 Dose: Not Given Ondansetron HCl (Zofran Odt) 4 mg PO Q4H PRN PRN Reason: nausea, able to take PO Oxycodone HCl (Oxycodone) 5 mg PO Q4H PRN PRN Reason: Pain (moderate 4-6) Last Admin: 10/30/16 09:38 Dose: 5 mg Sodium Chloride (Saline Flush) 10 ml FLUSH ASDIRECTED PRN PRN Reason: Keep Vein Open Last Admin: 10/30/16 09:06 Dose: 10 ml Zolpidem Tartrate (Ambien) 5 mg PO BEDTIME PRN PRN Reason: Sleep Discontinued Medications Atorvastatin Calcium (Lipitor) 40 mg PO DAILY [facility] Last Admin: 10/30/16 10:18 Dose: Not Given Sodium Chloride (Normal Saline) 1,000 mls @ 500 mls/hr IV .BOLUS ONE Stop: 10/29/16 04:39 Last Admin: 10/29/16 02:52 Dose: 500 mls/hr Morphine Sulfate (Morphine) 2 mg IVPUSH ONETIME ONE Stop: 10/29/16 02:41 Last Admin: 10/29/16 02:55 Dose: 2 mg Ondansetron HCl (Zofran) 4 mg IV ONETIME ONE Stop: 10/29/16 02:41 Last Admin: 10/29/16 02:53 Dose: 4 mg - Exam General: Reports: Alert, Oriented Lungs: Reports: Clear to Auscultation, Normal Respiratory Effort Cardiovascular: Reports: Regular Rate, Regular Rhythm GI/Abdominal Exam: Normal Bowel Sounds, Soft, Non-Tender Extremities: No Pedal Edema *Q Meaningful Use (DIS) - VTE *Q VTE Criteria *Q: - Stroke *Q Stroke Criteria *Q: - AMI *Q AMI Criteria *Q:
[2016-10-30] MEDS ORDERED: atorvaSTATin 20 MG Tab PO SCH (21:00)
== END 2016-10-30 17:00 | disposition home or self-care (01) ==
LOC: DL.ED 02:27 → DL.MS 04:01 → UNDOADMOB 04:01 → DL.MS 05:22
PROVIDERS: ADMIT Internal Medicine; ATTEND Internal Medicine
DX: R31.9 Hematuria, unspecified (principal); I25.10 Atherosclerotic heart disease of native coronary artery without angina pectoris; R10.9 Unspecified abdominal pain; I10 Essential (primary) hypertension; I25.2 Old myocardial infarction; E78.00 Pure hypercholesterolemia, unspecified; E03.9 Hypothyroidism, unspecified; Z87.442 Personal history of urinary calculi; Z87.891 Personal history of nicotine dependence; Z79.82 Long term (current) use of aspirin; Z79.899 Other long term (current) drug therapy; Z88.8 Allergy status to other drugs, medicaments and biological substances; Z95.1 Presence of aortocoronary bypass graft; Z95.0 Presence of cardiac pacemaker; Z98.890 Other specified postprocedural states
CPT/HCPCS: 36415; 74176; 80048; 80053; 81001; 85025; 87086; 96361; 96365; 96366; 96375; 99285; A9270; G0378; J0744; J2270; J2405; J7030; J7050; 96374

== ENCOUNTER 2017-05-09 18:54 | Emergency (ER) | payer BC ==
[2017-05-09] MEDS ORDERED: Sodium Chloride 0.9% 10 ML Syringe FLUSH PRN (19:08)
--- NOTE | 2017-05-09 19:13 | EDM.PDOC ---
ED HPI GENERAL MEDICAL PROBLEM - General Chief Complaint: Lower Extremity Injury/Pain Stated Complaint: [id number] RT LEG SWOLLEN BURNING Time Seen by Provider: 05/09/17 19:01 Source of Information: Reports: Patient, Family, RN, RN Notes Reviewed History Limitations: Reports: No Limitations - History of Present Illness INITIAL COMMENTS - FREE TEXT/NARRATIVE: Pt presents to the ER with c/o right lower leg "burning" and swelling. He states he noticed the right lower leg had a burning sensation on the anterior portion of the lower leg. He states he then noticed the right leg was bigger then the left and somewhat reddened. Pt denies any past history of blood clots, denies sob or cp, fever or chills, N/V/D. He states he has heart disease, but that is really his only health problem. Onset: Today, Sudden Location: Reports: Lower Extremity, Right Quality: Reports: Burning Severity: Moderate Improves with: Reports: None Worsens with: Reports: None Associated Symptoms: Reports: No Other Symptoms Right Lower Leg Pain Score (Numeric/FACES): 6 - Related Data Allergies Allergy/AdvReac Type Severity Reaction Status Date / Time niacin Allergy Cannot Verified 05/09/17 19:00 [From Niaspan Remember Extended-Release] Home Meds: Home Meds Levothyroxine Sodium [Tirosint] 100 mcg PO DAILY 12/10/13 [History] Metoprolol Tartrate [Lopressor] 50 mg PO BID 12/10/13 [History] atorvaSTATin [Lipitor] 40 mg PO DAILY 12/10/13 [History] Aspirin [Halfprin] 81 mg PO DAILY 03/16/15 [History] Multivitamin [One Daily] 1 tab PO DAILY 03/16/15 [History] Fenofibrate Nanocrystallized [Fenofibrate] 145 mg PO DAILY 10/29/16 [History] Past Medical History HEENT History: Reports: Impaired Vision Other HEENT History: wears reading glasses Cardiovascular History: Reports: High Cholesterol, Hypertension Other Cardiovascular History: [place] - 1991, bypass 2002, pacemaker 2010 Respiratory History: Reports: None Gastrointestinal History: Reports: None Genitourinary History: Reports: Renal Calculus Musculoskeletal History: Reports: None Neurological History: Reports: None Psychiatric History: Reports: None Endocrine/Metabolic History: Reports: Hypothyroidism Hematologic History: Reports: None Immunologic History: Reports: None Oncologic (Cancer) History: Reports: None Dermatologic History: Reports: None - Infectious Disease History Infectious Disease History: Reports: Chicken Pox, Measles - Past Surgical History Cardiovascular Surgical History: Reports: Coronary Artery Bypass, Pacer Male Surgical History: Reports: Ureteral Stent Social & Family History - Family History Family Medical History: Noncontributory - Tobacco Use Smoking Status *Q: Former Smoker Years of Tobacco use: 22 Packs/Tins Daily: 1 Used Tobacco, but Quit: Yes Month Tobacco Last Used: 03/1991 Second Hand Smoke Exposure: No - Caffeine Use Caffeine Use: Reports: Coffee - Recreational Drug Use Recreational Drug Use: No - Living Situation & Occupation Living situation: Reports: , with Family Occupation: Employed Review of Systems - Review of Systems Review Of Systems: ROS reveals no pertinent complaints other than HPI. ED EXAM, GENERAL - Physical Exam Exam: See Below Exam Limited By: No Limitations General Appearance: Alert, WD/WN, No Apparent Distress Eye Exam: Bilateral Eye: EOMI, Normal Inspection, PERRL Ears: Normal External Exam, Hearing Grossly Normal Nose: Normal Inspection Throat/Mouth: Normal Inspection, Normal Voice, No Airway Compromise Head: Atraumatic, Normocephalic Neck: Normal Inspection, Supple, Non-Tender, Full Range of Motion Respiratory/Chest: No Respiratory Distress, Lungs Clear, Normal Breath Sounds, No Accessory Muscle Use, Chest Non-Tender Cardiovascular: Normal Peripheral Pulses, Regular Rate, Rhythm, No Edema, No Gallop, No JVD, No Murmur, No Rub Peripheral Pulses: 2+: Radial (L), Radial (R), Dorsalis Pedis (L), Dorsalis Pedis (R) GI/Abdominal: Normal Bowel Sounds, Soft, Non-Tender, No Organomegaly, No Distention, No Abnormal Bruit, No Mass (Male) Exam: Deferred Rectal (Males) Exam: Deferred Back Exam: Normal Inspection, Full Range of Motion, NT Extremities: Normal Range of Motion, Non-Tender, No Pedal Edema, Normal Capillary Refill, Increased Warmth (right anterior lower leg), Redness (right anterior lower leg) Neurological: Alert, Oriented, CN II-XII Intact, Normal Cognition, Normal Gait, Normal Reflexes, No Motor/Sensory Deficits Psychiatric: Normal Affect, Normal Mood Skin Exam: Warm, Dry, Intact, Normal Color, No Rash Lymphatic: No Adenopathy Course - Vital Signs Last Recorded V/S: Last Vital Signs Temp 98 F 05/10/17 00:11 Pulse 60 05/10/17 00:11 Resp 20 05/10/17 00:11 BP 134/72 05/09/17 23:17 Pulse Ox 98 05/10/17 00:11 - Orders/Labs/Meds Orders: Active Orders 24 hr Category Date Time Status EKG Documentation Completion [RC] STAT Care 05/09/17 23:00 Active Peripheral IV Care [RC] . DIRECTED Care 05/09/17 19:08 Active Peripheral IV Insertion Adult [OM.PC] Stat Oth 05/09/17 19:08 Ordered Labs: Laboratory Tests 05/09/17 05/09/17 05/09/17 Range/Units 19:00 19:00 19:00 WBC 10.8 H (5.0-10.0) 10^3/uL RBC 4.45 L (4.6-6.2) 10^6/uL Hgb 13.3 L (14.0-18.0) g/dL Hct 38.3 L (40.0-54.0) % MCV 86.1 (80-100) fL MCH 29.9 (27.0-34.0) pg MCHC 34.7 (33.0-35.0) g/dL Plt Count 202 (150-450) 10^3/uL Neut % (Auto) 61.6 (42.2-75.2) % Lymph % (Auto) 26.1 (20.5-50.1) % [place] % (Auto) 6.9 (2-8) % Eos % (Auto) 5.0 H (1.0-3.0) % Baso % (Auto) 0.4 (0.0-1.0) % ESR (0-15) mm/hr PT 9.9 (9.0-12.0) SEC INR 1.0 (0.9-1.2) D-Dimer, Quantitative 242 (0-400) ng/mL Sodium 141 (135-145) mmol/L Potassium 3.4 L (3.6-5.0) mmol/L Chloride 106 (101-111) mmol/L Carbon Dioxide 29.0 (21.0-31.0) mmol/L Anion Gap 9.4 BUN 22 H (7-18) mg/dL Creatinine 1.4 H (0.6-1.3) mg/dL Est Cr Clr Drug Dosing 54.32 mL/min Estimated GFR (MDRD) 51 BUN/Creatinine Ratio 15.71 Glucose 108 H (74-105) mg/dL Lactic Acid (0.5-2.2) mmol/L Calcium 9.3 (8.4-10.2) mg/dl Total Bilirubin 0.6 (0.2-1.0) mg/dL AST 27 (10-42) IU/L ALT 24 (10-60) IU/L Alkaline Phosphatase 62 (42-121) IU/L Creatine Kinase (26-174) IU/L Creatine Kinase Index (0-2.4) % CK-MB (CK-2) (0.4-4.7) ng/mL Troponin I (0.00-0.02) ng/ml C-Reactive Protein (0.0-1.3) mg/dL Total Protein 6.7 (6.7-8.2) g/dl Albumin 3.6 (3.2-5.5) g/dl Globulin 3.1 Albumin/Globulin Ratio 1.16 05/09/17 05/09/17 05/09/17 Range/Units 19:00 19:00 19:00 WBC (5.0-10.0) 10^3/uL RBC (4.6-6.2) 10^6/uL Hgb (14.0-18.0) g/dL Hct (40.0-54.0) % MCV (80-100) fL MCH (27.0-34.0) pg MCHC (33.0-35.0) g/dL Plt Count (150-450) 10^3/uL Neut % (Auto) (42.2-75.2) % Lymph % (Auto) (20.5-50.1) % [place] % (Auto) (2-8) % Eos % (Auto) (1.0-3.0) % Baso % (Auto) (0.0-1.0) % ESR 5 (0-15) mm/hr PT (9.0-12.0) SEC INR (0.9-1.2) D-Dimer, Quantitative (0-400) ng/mL Sodium (135-145) mmol/L Potassium (3.6-5.0) mmol/L Chloride (101-111) mmol/L Carbon Dioxide (21.0-31.0) mmol/L Anion Gap BUN (7-18) mg/dL Creatinine (0.6-1.3) mg/dL Est Cr Clr Drug Dosing mL/min Estimated GFR (MDRD) BUN/Creatinine Ratio Glucose (74-105) mg/dL Lactic Acid (0.5-2.2) mmol/L Calcium (8.4-10.2) mg/dl Total Bilirubin (0.2-1.0) mg/dL AST (10-42) IU/L ALT (10-60) IU/L Alkaline Phosphatase (42-121) IU/L Creatine Kinase 125 (26-174) IU/L Creatine Kinase Index 5.0 H (0-2.4) % CK-MB (CK-2) 6.20 H (0.4-4.7) ng/mL Troponin I < 0.02 (0.00-0.02) ng/ml C-Reactive Protein (0.0-1.3) mg/dL Total Protein (6.7-8.2) g/dl Albumin (3.2-5.5) g/dl Globulin Albumin/Globulin Ratio 05/09/17 05/09/17 05/09/17 Range/Units 19:00 19:00 23:05 WBC (5.0-10.0) 10^3/uL RBC (4.6-6.2) 10^6/uL Hgb (14.0-18.0) g/dL Hct (40.0-54.0) % MCV (80-100) fL MCH (27.0-34.0) pg MCHC (33.0-35.0) g/dL Plt Count (150-450) 10^3/uL Neut % (Auto) (42.2-75.2) % Lymph % (Auto) (20.5-50.1) % [place] % (Auto) (2-8) % Eos % (Auto) (1.0-3.0) % Baso % (Auto) (0.0-1.0) % ESR (0-15) mm/hr PT (9.0-12.0) SEC INR (0.9-1.2) D-Dimer, Quantitative (0-400) ng/mL Sodium (135-145) mmol/L Potassium (3.6-5.0) mmol/L Chloride (101-111) mmol/L Carbon Dioxide (21.0-31.0) mmol/L Anion Gap BUN (7-18) mg/dL Creatinine (0.6-1.3) mg/dL Est Cr Clr Drug Dosing mL/min Estimated GFR (MDRD) BUN/Creatinine Ratio Glucose (74-105) mg/dL Lactic Acid 1.0 (0.5-2.2) mmol/L Calcium (8.4-10.2) mg/dl Total Bilirubin (0.2-1.0) mg/dL AST (10-42) IU/L ALT (10-60) IU/L Alkaline Phosphatase (42-121) IU/L Creatine Kinase 164 (26-174) IU/L Creatine Kinase Index 2.8 H (0-2.4) % CK-MB (CK-2) 4.60 (0.4-4.7) ng/mL Troponin I (0.00-0.02) ng/ml C-Reactive Protein 0.8 (0.0-1.3) mg/dL Total Protein (6.7-8.2) g/dl Albumin (3.2-5.5) g/dl Globulin Albumin/Globulin Ratio 05/09/17 Range/Units 23:05 WBC (5.0-10.0) 10^3/uL RBC (4.6-6.2) 10^6/uL Hgb (14.0-18.0) g/dL Hct (40.0-54.0) % MCV (80-100) fL MCH (27.0-34.0) pg MCHC (33.0-35.0) g/dL Plt Count (150-450) 10^3/uL Neut % (Auto) (42.2-75.2) % Lymph % (Auto) (20.5-50.1) % [place] % (Auto) (2-8) % Eos % (Auto) (1.0-3.0) % Baso % (Auto) (0.0-1.0) % ESR (0-15) mm/hr PT (9.0-12.0) SEC INR (0.9-1.2) D-Dimer, Quantitative (0-400) ng/mL Sodium (135-145) mmol/L Potassium (3.6-5.0) mmol/L Chloride (101-111) mmol/L Carbon Dioxide (21.0-31.0) mmol/L Anion Gap BUN (7-18) mg/dL Creatinine (0.6-1.3) mg/dL Est Cr Clr Drug Dosing mL/min Estimated GFR (MDRD) BUN/Creatinine Ratio Glucose (74-105) mg/dL Lactic Acid (0.5-2.2) mmol/L Calcium (8.4-10.2) mg/dl Total Bilirubin (0.2-1.0) mg/dL AST (10-42) IU/L ALT (10-60) IU/L Alkaline Phosphatase (42-121) IU/L Creatine Kinase (26-174) IU/L Creatine Kinase Index (0-2.4) % CK-MB (CK-2) (0.4-4.7) ng/mL Troponin I < 0.02 (0.00-0.02) ng/ml C-Reactive Protein (0.0-1.3) mg/dL Total Protein (6.7-8.2) g/dl Albumin (3.2-5.5) g/dl Globulin Albumin/Globulin Ratio Meds: Medications Discontinued Medications Generic Name Dose Route Start Last Admin Trade Name Freq PRN Reason Stop Dose Admin Al Hydroxide/Mg Hydroxide 30 ml 05/09/17 20:51 05/09/17 20:56 Gi Cocktail PO 05/09/17 20:52 30 ml ONETIME ONE Administration Cephalexin 500 mg 05/09/17 23:55 05/10/17 00:05 Keflex PO 05/09/17 23:56 500 mg ONETIME ONE Administration Sodium Chloride 10 ml 05/09/17 19:08 05/09/17 19:23 Saline Flush FLUSH 10 ml ASDIRECTED PRN Administration Keep Vein Open Departure - Departure Time of Disposition: 23:50 Disposition: Home, Self-Care 01 Condition: Fair Clinical Impression: Cellulitis Qualifiers: Site of cellulitis: extremity Site of cellulitis of extremity: lower extremity Laterality: right Qualified Code(s): L03.115 - Cellulitis of right lower limb - Discharge Information Instructions: Cellulitis, Adult, [id number] Referrals: Ottoniel Sesay MD [Primary Care Provider] - Forms: ED Department Discharge Additional Instructions: RX: Cephalexin Rest, elevate leg as frequently as possible. Follow up with your primary care facility - My Orders Last 24 Hours: My Active Orders 05/09/17 19:08 Peripheral IV Care [RC] . DIRECTED Peripheral IV Insertion Adult [OM.PC] Stat 05/09/17 23:00 EKG Documentation Completion [RC] STAT - Assessment/Plan Last 24 Hours: My Active Orders 05/09/17 19:08 Peripheral IV Care [RC] . DIRECTED Peripheral IV Insertion Adult [OM.PC] Stat 05/09/17 23:00 EKG Documentation Completion [RC] STAT
[2017-05-09] MEDS ORDERED: GI Cocktail Oral Solution 30 ML PO ONE (20:51)
[2017-05-09 23:18] VITALS: BP 134/72
[2017-05-09] MEDS ORDERED: Cephalexin 500 MG Cap PO ONE (23:55)
--- NOTE | 2017-05-13 14:36 | EKG ---
05/09/2017- PATIENCE HEWITT - FINDINGS: EKG, per my reading, shows atrial-paced rhythm. [facility] /[id number]
== END 2017-05-10 00:14 | disposition home or self-care (01) ==
LOC: DL.ED 18:54
DX: L03.115 Cellulitis of right lower limb (principal); E78.00 Pure hypercholesterolemia, unspecified; I10 Essential (primary) hypertension; E03.9 Hypothyroidism, unspecified; Z88.8 Allergy status to other drugs, medicaments and biological substances; Z79.82 Long term (current) use of aspirin; Z79.899 Other long term (current) drug therapy; Z87.891 Personal history of nicotine dependence
CPT/HCPCS: 36415; 80053; 82550; 82553; 83605; 84484; 85025; 85379; 85610; 85651; 86140; 93005; 99284; A9270; J7050

== ENCOUNTER 2018-08-01 07:52 | Emergency (ER) | payer BC, MEDICARE ==
[2018-08-01] MEDS ORDERED: Sodium Chloride 0.9% 1,000 ML IV ONE (08:30)
[2018-08-01] MEDS ORDERED: Sodium Chloride 0.9% 10 ML Syringe FLUSH PRN (08:30)
--- NOTE | 2018-08-01 08:43 | EDM.PDOC ---
ED HPI GENERAL MEDICAL PROBLEM - General Chief Complaint: Gastrointestinal Problem Stated Complaint: WEAK,DEHYDRATED [id number] Time Seen by Provider: 08/01/18 08:15 Source of Information: Reports: Patient, Family, RN, RN Notes Reviewed History Limitations: Reports: No Limitations - History of Present Illness INITIAL COMMENTS - FREE TEXT/NARRATIVE: Pt to ER with c/o diarrhea that began Saturday, chills, weakness, and sleeping all the time. Patient states anything he eats or drinks goes right through him. He is unsure of fever. Denies nausea or vomiting. Denies chest pains, abdominal pains, or SOB. Patient also c/o a burning sensation and pain in the feet and legs at times. He states he is on his feet constantly, states these symptoms began a few weeks ago. Patient admits to heart disease, pacemaker. Denies any other health problems. Onset: Gradual Onset Date: 07/28/18 - Related Data Allergies Allergy/AdvReac Type Severity Reaction Status Date / Time niacin Allergy Cannot Verified 08/01/18 08:06 [From Niaspan Remember Extended-Release] Home Meds: Home Meds Levothyroxine Sodium [Tirosint] 100 mcg PO DAILY 12/10/13 [History] Metoprolol Tartrate [Lopressor] 50 mg PO BID 12/10/13 [History] Aspirin [Halfprin] 81 mg PO DAILY 03/16/15 [History] Multivitamin [One Daily] 1 tab PO DAILY 03/16/15 [History] Fenofibrate Nanocrystallized [Fenofibrate] 145 mg PO DAILY 10/29/16 [History] Nitroglycerin 0.4 mg SL ASDIRECTED PRN 08/01/18 [History] atorvaSTATin Calcium [Atorvastatin Calcium] 80 mg PO BEDTIME 08/01/18 [History] Past Medical History HEENT History: Reports: Impaired Vision Other HEENT History: wears reading glasses Cardiovascular History: Reports: CAD, High Cholesterol, Hypertension Other Cardiovascular History: [place] - 1991, bypass 2002, pacemaker 2010 Respiratory History: Reports: None Gastrointestinal History: Reports: None Genitourinary History: Reports: Renal Calculus Musculoskeletal History: Reports: None Neurological History: Reports: None Psychiatric History: Reports: None Endocrine/Metabolic History: Reports: Hypothyroidism Hematologic History: Reports: None Immunologic History: Reports: None Oncologic (Cancer) History: Reports: None Dermatologic History: Reports: None - Infectious Disease History Infectious Disease History: Reports: Chicken Pox, Measles - Past Surgical History Cardiovascular Surgical History: Reports: Coronary Artery Bypass, Pacer Male Surgical History: Reports: Ureteral Stent Social & Family History - Family History Family Medical History: Noncontributory - Tobacco Use Smoking Status *Q: Never Smoker Second Hand Smoke Exposure: No - Caffeine Use Caffeine Use: Reports: Soda - Recreational Drug Use Recreational Drug Use: No - Living Situation & Occupation Living situation: Reports: , with Family Occupation: Employed ED ROS GENERAL - Review of Systems Review Of Systems: ROS reveals no pertinent complaints other than HPI. ED EXAM, GENERAL - Physical Exam Exam: See Below Exam Limited By: No Limitations General Appearance: Alert, WD/WN, No Apparent Distress Eye Exam: Bilateral Eye: EOMI, Normal Inspection Ears: Normal External Exam, Hearing Grossly Normal Nose: Normal Inspection Throat/Mouth: Normal Lips, Normal Voice, No Airway Compromise, Other (dry mucous membranes) Head: Atraumatic, Normocephalic Neck: Normal Inspection, Supple, Non-Tender, Full Range of Motion Respiratory/Chest: No Respiratory Distress, Lungs Clear, Normal Breath Sounds, No Accessory Muscle Use, Chest Non-Tender Cardiovascular: Normal Peripheral Pulses, Regular Rate, Rhythm, No Edema, No Gallop, No JVD, No Murmur, No Rub Peripheral Pulses: 2+: Radial (L), Radial (R) GI/Abdominal: Soft, Non-Tender, No Organomegaly, No Distention, No Abnormal Bruit, No Mass, Pelvis Stable, Abnormal Bowel Sounds (Hyperactive) (Male) Exam: Deferred Rectal (Males) Exam: Deferred Back Exam: Normal Inspection, Full Range of Motion, NT Extremities: Normal Inspection, Normal Range of Motion, Non-Tender, Normal Capillary Refill, No Pedal Edema Neurological: Alert, Oriented, CN II-XII Intact, Normal Cognition, Normal Gait, Normal Reflexes, No Motor/Sensory Deficits Psychiatric: Normal Affect, Normal Mood Skin Exam: Warm, Dry, Intact, Normal Color, No Rash Lymphatic: No Adenopathy Course - Vital Signs Last Recorded V/S: Last Vital Signs Temp 97.8 F 08/01/18 12:02 Pulse 61 08/01/18 12:02 Resp 16 08/01/18 12:02 BP 121/69 08/01/18 12:02 Pulse Ox 98 08/01/18 12:02 - Orders/Labs/Meds Orders: Active Orders 24 hr Category Date Time Status Peripheral IV Care [RC] . DIRECTED Care 08/01/18 08:30 Active CULTURE STOOL [RM] Stat Lab 08/01/18 12:00 Ordered E COLI STOOL CULT [MREF] Stat Lab 08/01/18 12:00 Ordered H PYLORI STOOL ANTIGEN [MREF] Stat Lab 08/01/18 12:00 Ordered OCCULT BLOOD DIAGNOSTIC [OP] Stat Lab 08/01/18 12:03 Ordered STOOL CULTURE/SHIGA TOXIN [MREF] Stat Lab 08/01/18 12:00 Ordered Sodium Chloride 0.9% [Saline Flush] Med 08/01/18 08:30 Active 10 ml FLUSH ASDIRECTED PRN Peripheral IV Insertion Adult [OM.PC] Stat Oth 08/01/18 08:27 Ordered Medication Orders Sodium Chloride (Saline Flush) 10 ml FLUSH ASDIRECTED PRN PRN Reason: Keep Vein Open Last Admin: 08/01/18 08:33 Dose: 10 ml Labs: Laboratory Tests 08/01/18 08/01/18 08/01/18 Range/Units 08:32 08:32 11:49 WBC 7.1 (5.0-10.0) 10^3/uL RBC 4.77 (4.6-6.2) 10^6/uL Hgb 14.3 (14.0-18.0) g/dL Hct 41.0 (40.0-54.0) % MCV 86.0 (80-100) fL MCH 30.0 (27.0-34.0) pg MCHC 34.9 (33.0-35.0) g/dL Plt Count 175 (150-450) 10^3/uL Neut % (Auto) 82.1 H (42.2-75.2) % Lymph % (Auto) 8.3 L (20.5-50.1) % [place] % (Auto) 7.2 (2-8) % Eos % (Auto) 2.1 (1.0-3.0) % Baso % (Auto) 0.3 (0.0-1.0) % Sodium 137 (135-145) mmol/L Potassium 3.5 L (3.6-5.0) mmol/L Chloride 108 (101-111) mmol/L Carbon Dioxide 21.0 (21.0-31.0) mmol/L Anion Gap 11.5 BUN 23 H (7-18) mg/dL Creatinine 1.3 (0.6-1.3) mg/dL Est Cr Clr Drug Dosing 57.71 mL/min Estimated GFR (MDRD) 55 BUN/Creatinine Ratio 17.69 Glucose 99 (74-105) mg/dL Calcium 9.7 (8.4-10.2) mg/dl Magnesium 1.4 L (1.8-2.5) mg/dL Total Bilirubin 0.8 (0.2-1.0) mg/dL AST 28 (10-42) IU/L ALT 26 (10-60) IU/L Alkaline Phosphatase 57 (42-121) IU/L Total Protein 6.8 (6.7-8.2) g/dl Albumin 3.7 (3.2-5.5) g/dl Globulin 3.1 Albumin/Globulin Ratio 1.19 Urine Color Yellow (YELLOW) Urine Appearance Slightly cloudy (CLEAR) Urine pH 5.0 (5.0-9.0) Ur Specific [place] 1.025 (1.005-1.030) Urine Protein Negative (NEGATIVE) Urine Glucose (UA) Negative (NEGATIVE) Urine Ketones Negative (NEGATIVE) Urine Occult Blood Trace-intact H (NEGATIVE) Urine Nitrite Negative (NEGATIVE) Urine Bilirubin Negative (NEGATIVE) Urine Urobilinogen 0.2 (0.2-1.0) mg/dL Ur Leukocyte Esterase Negative (NEGATIVE) Urine RBC 5-10 H /HPF Urine WBC 0-5 (0-5/HPF) /HPF Ur Epithelial Cells Rare (NOT SEEN) /HPF Uric Acid Crystals Few (NOT SEEN) Amorphous Sediment Rare (NOT SEEN) /HPF Urine Bacteria Rare (0-FEW/HPF) /HPF Urine Mucus Moderate H (NOT SEEN) /LPF Meds: Medications Generic Name Dose Route Start Last Admin Trade Name Freq PRN Reason Stop Dose Admin Sodium Chloride 10 ml 08/01/18 08:30 08/01/18 08:33 Saline Flush FLUSH 10 ml ASDIRECTED PRN Administration Keep Vein Open Discontinued Medications Generic Name Dose Route Start Last Admin Trade Name Freq PRN Reason Stop Dose Admin Sodium Chloride 1,000 mls @ 999 mls/hr 08/01/18 08:30 08/01/18 08:37 Normal Saline IV 05/31/19 09:30 999 mls/hr .BOLUS ONE Administration Lactated Ringer's 1,000 mls @ 999 mls/hr 08/01/18 09:14 08/01/18 09:36 Ringers, Lactated IV 08/01/18 10:14 999 mls/hr .BOLUS ONE Administration Magnesium Sulfate/Dextrose 2 200 mls @ 100 mls/hr 08/01/18 09:12 08/01/18 09: 38 gm/ Premix IV 08/01/18 11:11 100 mls/hr ONETIME ONE Administration Potassium Chloride 40 meq 08/01/18 09:15 08/01/18 09:38 Klor-Con 10 PO 08/01/18 09:16 40 meq ONETIME ONE Administration Departure - Departure Time of Disposition: 12:09 Disposition: Home, Self-Care 01 Condition: Fair Clinical Impression: Hypomagnesemia, Hypokalemia Diarrhea Qualifiers: Diarrhea type: unspecified type Qualified Code(s): R19.7 - Diarrhea, unspecified - Discharge Information *PRESCRIPTION DRUG MONITORING PROGRAM REVIEWED*: No *COPY OF PRESCRIPTION DRUG MONITORING REPORT IN PATIENT KELLE: No Instructions: Viral Gastroenteritis, Adult, [id number], Hypomagnesemia, Food Choices to Help Relieve Diarrhea, Adult, Dehydration, Adult, [id number], Diarrhea, Adult, [id number] Forms: ED Department Discharge Additional Instructions: May take Imodium over the counter as directed for diarrhea Drink plenty of water Follow up with Dr. Sesay next week Return to the ER with any further problems. - My Orders Last 24 Hours: My Active Orders 08/01/18 08:27 Peripheral IV Insertion Adult [OM.PC] Stat 08/01/18 08:30 Peripheral IV Care [RC] . DIRECTED Sodium Chloride 0.9% [Saline Flush] 10 ml FLUSH ASDIRECTED PRN 08/01/18 12:00 CULTURE STOOL [RM] Stat E COLI STOOL CULT [MREF] Stat H PYLORI STOOL ANTIGEN [MREF] Stat STOOL CULTURE/SHIGA TOXIN [MREF] Stat 08/01/18 12:03 OCCULT BLOOD DIAGNOSTIC [OP] Stat - Assessment/Plan Last 24 Hours: My Active Orders 08/01/18 08:27 Peripheral IV Insertion Adult [OM.PC] Stat 08/01/18 08:30 Peripheral IV Care [RC] . DIRECTED Sodium Chloride 0.9% [Saline Flush] 10 ml FLUSH ASDIRECTED PRN 08/01/18 12:00 CULTURE STOOL [RM] Stat E COLI STOOL CULT [MREF] Stat H PYLORI STOOL ANTIGEN [MREF] Stat STOOL CULTURE/SHIGA TOXIN [MREF] Stat 08/01/18 12:03 OCCULT BLOOD DIAGNOSTIC [OP] Stat
[2018-08-01 09:00] LABS: ANION GAP 11.5
[2018-08-01] MEDS ORDERED: Magnesium Sulfate/D5W 2 GM in Premix Bag 1 BAG IV ONE (09:12)
[2018-08-01] MEDS ORDERED: Lactated Ringers 1,000 ML IV ONE (09:14)
[2018-08-01] MEDS ORDERED: Potassium Chloride 10 MEQ Tab.ER PO ONE (09:15)
[2018-08-01 12:03] VITALS: BP 121/69; PULSE 61
== END 2018-08-01 12:18 | disposition home or self-care (01) ==
LOC: DL.ED 07:52
DX: E87.6 Hypokalemia (principal); E83.42 Hypomagnesemia; R19.7 Diarrhea, unspecified; I10 Essential (primary) hypertension; I25.10 Atherosclerotic heart disease of native coronary artery without angina pectoris; Z88.8 Allergy status to other drugs, medicaments and biological substances; Z79.82 Long term (current) use of aspirin; Z79.899 Other long term (current) drug therapy; Z95.1 Presence of aortocoronary bypass graft; Z95.0 Presence of cardiac pacemaker
CPT/HCPCS: 36415; 80053; 81001; 82272; 83735; 85025; 87045; 87338; 87899; 96361; 96365; 96366; 99284; A4217; A9270; J3475; J7030; J7120

== ENCOUNTER 2020-08-04 12:15 | Emergency (ER) | payer OTHER, BC, MEDICARE ==
[2020-08-04] MEDS ORDERED: Diphtheria,Pertussis(Acell),Tetanus Vaccine 0.5 ML Syringe IM ONE (12:27)
[2020-08-04] MEDS ORDERED: Lidocaine 1% 30 ML SDV INJECT ONE (12:27)
[2020-08-04 12:31] VITALS: BP 161/67; PULSE 88
--- NOTE | 2020-08-04 13:40 | EDM.PDOC ---
<Joshua Chamberlain - Last Filed: 08/04/20 13:44> ED HPI GENERAL MEDICAL PROBLEM - General Chief Complaint: Laceration Stated Complaint: IN BY AMBULANCE Time Seen by Provider: 08/04/20 12:30 Source of Information: Reports: Patient, EMS, Old Records, RN, RN Notes Reviewed History Limitations: Reports: No Limitations - History of Present Illness INITIAL COMMENTS - FREE TEXT/NARRATIVE: Pt arrives to ER by [facility] with c/o laceration to right forehead and face. Pt states he was trying to get a box off of a high shelf with a co-worker when a wood pole/stick hit him in the right side face. Bleeding controlled by EMS with gauze dressing and pressure. No LOC. Denies any other injury. Year of last Tetanus vaccine unknown to pt. Onset: Today, Sudden Duration: Constant Location: Reports: Face Quality: Reports: Ache Severity: Mild Improves with: Reports: None Worsens with: Reports: None Associated Symptoms: Reports: No Other Symptoms Right Face/Facial Pain Score (Numeric/FACES): 5 - Related Data Allergies Allergy/AdvReac Type Severity Reaction Status Date / Time niacin Allergy Cannot Verified 08/01/18 08:06 [From [facility] Remember Extended-Release] Home Meds: Home Meds Levothyroxine Sodium [Tirosint] 100 mcg PO DAILY 12/10/13 [History] Metoprolol Tartrate [Lopressor] 50 mg PO BID 12/10/13 [History] Aspirin [Halfprin] 81 mg PO DAILY 03/16/15 [History] Multivitamin [One Daily] 1 tab PO DAILY 03/16/15 [History] Fenofibrate Nanocrystallized [Fenofibrate] 145 mg PO DAILY 10/29/16 [History] Nitroglycerin 0.4 mg SL ASDIRECTED PRN 08/01/18 [History] atorvaSTATin Calcium [Atorvastatin Calcium] 80 mg PO BEDTIME 08/01/18 [History] Past Medical History HEENT History: Reports: Impaired Vision Other HEENT History: wears reading glasses Cardiovascular History: Reports: CAD, High Cholesterol, Hypertension Other Cardiovascular History: [place] - 1991, bypass 2002, pacemaker 2010 Respiratory History: Reports: None Gastrointestinal History: Reports: None Genitourinary History: Reports: Renal Calculus Musculoskeletal History: Reports: None Neurological History: Reports: None Psychiatric History: Reports: None Endocrine/Metabolic History: Reports: Hypothyroidism Hematologic History: Reports: None Immunologic History: Reports: None Oncologic (Cancer) History: Reports: None Dermatologic History: Reports: None - Infectious Disease History Infectious Disease History: Reports: Chicken Pox, Measles - Past Surgical History Cardiovascular Surgical History: Reports: Coronary Artery Bypass, Pacer Male Surgical History: Reports: Ureteral Stent Social & Family History - Family History Family Medical History: No Pertinent Family History - Tobacco Use Tobacco Use Status *Q: Unknown Ever Used Tobacco - Caffeine Use Caffeine Use: Reports: Coffee - Recreational Drug Use Recreational Drug Use: No - Living Situation & Occupation Living situation: Reports: , with Family Occupation: Employed ED ROS GENERAL - Review of Systems Review Of Systems: Comprehensive ROS is negative, except as noted in HPI. ED EXAM, SKIN/RASH Exam: See Below Exam Limited By: No Limitations General Appearance: Alert, WD/WN, No Apparent Distress Eye Exam: Bilateral Eye: EOMI, PERRL Ears: Normal External Exam, Hearing Grossly Normal Nose: Normal Inspection Throat/Mouth: Normal Inspection, Normal Lips, Normal Voice, No Airway Compromise Head: Normocephalic, Other (Rt forehead vertical linear lac. 3cm to depth of subcut. tissue. Rt infraorbital face w/two parallel abrasions/lacs superficial depth) Neck: Normal Inspection, Non-Tender, Full Range of Motion Respiratory/Chest: No Respiratory Distress Extremities: Normal Inspection Neurological: Alert, Oriented, CN II-XII Intact, Normal Cognition, Normal Gait, No Motor/Sensory Deficits Psychiatric: Normal Affect, Normal Mood Skin: Warm, Dry Course - Re-Assessments/Exams Free Text/Narrative Re-Assessment/Exam: 08/04/20 13:44 I personally performed or re-performed the physical examination and medical decision making. I have verified all student documentation or findings, including history, physical exam and/or medical decision making. Departure - Departure Time of Disposition: 13:41 Disposition: Home, Self-Care 01 Condition: Good Clinical Impression: Work related injury Facial laceration Qualifiers: Encounter type: initial encounter Qualified Code(s): S01.81XA - Laceration without foreign body of other part of head, initial encounter Facial abrasion Qualifiers: Encounter type: initial encounter Qualified Code(s): S00.81XA - Abrasion of other part of head, initial encounter - Discharge Information *PRESCRIPTION DRUG MONITORING PROGRAM REVIEWED*: Not Applicable *COPY OF PRESCRIPTION DRUG MONITORING REPORT IN PATIENT KELLE: Not Applicable Instructions: Facial Laceration, Sutures, [place], or Adhesive Wound Closure, [id number] Forms: ED Department Discharge Additional Instructions: Keep sutures clean and as dry as possible. Follow up in clinic with your primary doctor for suture removal in 7 days. Sepsis Event Note (ED) - Evaluation Sepsis Screening Result: No Definite Risk <Jonna Zee - Last Filed: 08/04/20 14:23> ED SKIN PROCEDURES - Laceration/Wound Repair Upper Midline Forehead Appearance: Subcutaneous, Linear Anesthetic Type: Local Local Anesthesia - Lidocaine (Xylocaine): 1% Plain Local Anesthetic Volume: 5cc Skin Prep: Chlorhexidine (Hibiciens), Saline, Sterile Drape Exploration/Debridement/Repair: Explored to Base Closed with: Sutures Lac/Wound length In cm: 4.5 Suture Size: 3-0 # of Sutures: 5 Suture Type: Interrupted Tetanus Status Addressed: Yes (Gave tetanus vaccine at ED) Progress/Comments: Patient is on elliquis and was oozing blood. Stopped after pressure held for 1 minute. Right Upper Cheek Appearance: Superficial Closed with: Steri-Strips Lac/Wound length In cm: 7 Course - Vital Signs Last Recorded V/S: Last Vital Signs Temp 98.0 F 08/04/20 12:26 Pulse 88 08/04/20 12:26 Resp 18 08/04/20 12:26 BP 161/67 H 08/04/20 12:26 Pulse Ox 96 08/04/20 12:26 - Orders/Labs/Meds Orders: Active Orders 24 hr Category Date Time Status Vaccines to be Administered [RC] PER UNIT ROUTINE Care 08/04/20 12:27 Active Meds: Medications Discontinued Medications Generic Name Dose Route Start Last Admin Trade Name Freq PRN Reason Stop Dose Admin Diphtheria/Tetanus/Acell Pertussis 0.5 ml 08/04/20 12:27 08/04/20 12:37 Diphtheria,Pertussis(Acell),Tetanus Vaccine 0.5 Ml Syringe IM 08/04/20 12:28 0.5 ml .ONCE ONE Administration Lidocaine HCl 30 ml 08/04/20 12:27 08/04/20 12:37 Lidocaine 1% 30 Ml Sdv INJECT 08/04/20 12:28 30 ml ONETIME ONE Administration Sepsis Event Note (ED) - Focused Exam Vital Signs: Vital Signs Temp Pulse Resp BP Pulse Ox 08/04/20 12:26 98.0 F 88 18 161/67 H 96
== END 2020-08-04 14:08 | disposition home or self-care (01) ==
LOC: DL.ED 12:15
DX: S01.81XA Laceration without foreign body of other part of head, initial encounter (principal); E03.9 Hypothyroidism, unspecified; I25.10 Atherosclerotic heart disease of native coronary artery without angina pectoris; E78.00 Pure hypercholesterolemia, unspecified; I10 Essential (primary) hypertension; I25.2 Old myocardial infarction; Z95.1 Presence of aortocoronary bypass graft; Z95.0 Presence of cardiac pacemaker; Z88.3 Allergy status to other anti-infective agents; Z79.899 Other long term (current) drug therapy; Z79.82 Long term (current) use of aspirin; Z23 Encounter for immunization; W26.8XXA Contact with other sharp object(s), not elsewhere classified, initial encounter; W22.8XXA Striking against or struck by other objects, initial encounter; Y99.0 Civilian activity done for income or pay
CPT/HCPCS: 12013; 90471; 90715; 99283; 99283-25